=== PATIENT | male | born 2000 | race Caucasian/White ===

== ENCOUNTER 2023-07-06 23:02 | Emergency (ER) | payer BC, OTHER ==
[2023-07-07 00:15] VITALS: BP 129/76; PULSE 79
[2023-07-07] MEDS ORDERED: traMADol 50 MG Tab PO ONE (00:20)
== END 2023-07-07 00:43 | disposition home or self-care (01) ==
LOC: FB.ED 23:02
DX: S20.212A Contusion of left front wall of thorax, initial encounter (principal); X50.0XXA Overexertion from strenuous movement or load, initial encounter
CPT/HCPCS: 71101; 99283; A9270; 99282